=== PATIENT | female | born 1935 | race Caucasian/White ===

== ENCOUNTER 2017-06-15 22:32 | Emergency (ER) | payer MEDICARE, MEDICAID ==
[~2017-06-15] VITALS: Ht 165.1 cm; Wt 60.8 kg
--- OUTSIDE RECORDS SUMMARY | 2017-06-16 01:02 | XMS REPORT | Clinical Summary ---
Author Author Admin, QIE Organization [facility] Address Unknown Phone Unavailable Allergies, Adverse Reactions, Alerts Allergy Name Reaction Description Start Date Severity Status Provider EGG/PRO rash Critical Active Meenakshi Lucke EGGS rash Critical No Longer Active Denilson Saenz MD PENICILLIN rash Critical Active Denilson Saenz MD Conditions or Problems Problem Name Problem Code Onset Date Status Entry Date Provider Comment Standard Description Annotate Diabetes, Type 2 250.00 Active Denilson Saenz MD Diabetes mellitus without mention of complication, type II or unspecified type, not stated as uncontrolled Hypertension 401.9 Active Denilson Saenz MD Unspecified essential hypertension Hyperlipidemia 272.4 Active Denilson Saenz MD Other and unspecified hyperlipidemia Low back pain, chronic 724.2 Active Denilson Saenz MD [facility] MAINTENANCE EXAM V70.0 Active Denilson Saenz MD Routine general medical examination at a health care facility Venous insufficiency, chronic 459.81 Active Denilson Saenz MD Venous (peripheral) insufficiency, unspecified Myocardial infarction 410.90 Active Denilson Saenz MD Acute myocardial infarction, unspecified site, episode of care unspecified Seborrheic keratosis 702.19 Active Denilson Saenz MD Other seborrheic keratosis Encounter for surgical aftercare following surgery on the digestive system V58.75 Active Justus Pfeiffer MD Aftercare following surgery of the teeth,oral cavity and digestive system, NEC Medication List Medication Instructions Start Date Stop Date Generic Name NDC Status Provider Patient Instruction METOCLOPRAMIDE HCL 10 MG ORAL TABS 1 tab daily METOCLOPRAMIDE HCL 83120383025 Active Justus Pfeiffer MD Active NIFEDIPINE 10 MG ORAL CAPS 1 tab NIFEDIPINE 11637414512 Active Justus Pfeiffer MD Active MINIPRESS 1 MG CAPS 1 at hs PRAZOSIN HCL 47582774560 No Longer Active Justus Pfeiffer MD Active ADVIL 200 MG TABS 2tid IBUPROFEN 90751502676 No Longer Active Justus Pfeiffer MD Active BYSTOLIC 20 MG TABS 1bid NEBIVOLOL HCL 46557541659 No Longer Active Justus Pfeiffer MD Active STEP N REST WALKER MISC Low back pain, Diabetes MISC. DEVICES 12004229511 Active Denilson Saenz MD Active DIABETIC SHOES Wear daily DIABETIC SHOES Active Denilson Saenz MD Active FUROSEMIDE 20 MG TABS 1 1/2 qd FUROSEMIDE 37323738844 Active Denilson Saenz MD Active CLONIDINE HCL 0.2 MG TABS 1bid CLONIDINE HCL 93730706219 Active Denilson Saenz MD Active LISINOPRIL 40 MG TABS 1qd LISINOPRIL 42867055021 Active Denilson Saenz MD Active BYSTOLIC 20 MG TABS 1bid BYSTOLIC 20 MG TABS NEBIVOLOL HCL Inactive ADVIL 200 MG TABS 2tid ADVIL 200 MG TABS 120637 IBUPROFEN Inactive MINIPRESS 1 MG CAPS 1 at hs MINIPRESS 1 MG CAPS 172598 PRAZOSIN HCL Inactive Vital Signs Date Name Value Unit Range Description blood pressure, diastolic - 8462-4 70 mm[Hg] BP padilla blood pressure, systolic - 8480-6 140 mm[Hg] BP sys height E&M - 8302-2 60 [in_us] Bdy height pulse rate E&M - 8867-4 70 /min Heart rate temperature E&M 70 [degF] Body temperature weight E&M - 3141-9 139.5 [lb_av] Weight Measured Encounters Code Encounter Date Provider Facility CPT-60208 Level 3 Est. Patient 12:15:31 CDT Denilson Saenz MD [facility] CPT-48454 Level 4 New Patient 12:13:14 CRANE CHASER eDnilson Saenz MD [facility] Procedures Code Procedure Name Date Entry Date Standard Description CPT-86577 Postop F/U Visit 14:23:41 CDT
--- OUTSIDE RECORDS SUMMARY | 2017-06-16 01:02 | XMS REPORT | Clinical Summary ---
Author Author Admin, QIE Organization [facility] Address Unknown Phone Unavailable Allergies, Adverse Reactions, [...] pain, chronic 724.2 Active Denilson Saenz MD [facility] MAINTENANCE EXAM V70.0 Active Denilson Saenz [...] ORAL TABS 1 tab daily METOCLOPRAMIDE HCL 44437737675 Active Justus Pfeiffer MD Active NIFEDIPINE 10 MG ORAL CAPS 1 tab NIFEDIPINE 64174472466 Active Justus Pfeiffer MD Active MINIPRESS 1 MG CAPS 1 at hs PRAZOSIN HCL 84908119048 No Longer Active Justus Pfeiffer MD Active ADVIL 200 MG TABS 2tid IBUPROFEN 34905390200 No Longer Active Justus Pfeiffer MD Active BYSTOLIC 20 MG TABS 1bid NEBIVOLOL HCL 56975292402 No Longer Active Justus Pfeiffer MD Active STEP N REST WALKER [facility] Low back pain, Diabetes MISC. DEVICES 97138630637 Active Denilson Saenz MD Active DIABETIC SHOES Wear daily DIABETIC SHOES Active Denilson Saenz MD Active FUROSEMIDE 20 MG TABS 1 1/2 qd FUROSEMIDE 04085623627 Active Denilson Saenz MD Active CLONIDINE HCL 0.2 MG TABS 1bid CLONIDINE HCL 99585874838 Active Denilson Saenz MD Active LISINOPRIL 40 MG TABS 1qd LISINOPRIL 01415003449 Active Denilson Saenz MD Active BYSTOLIC 20 MG TABS 1bid BYSTOLIC 20 MG TABS NEBIVOLOL HCL Inactive ADVIL 200 MG TABS 2tid ADVIL 200 MG TABS 741543 IBUPROFEN Inactive MINIPRESS 1 MG CAPS 1 at hs MINIPRESS 1 MG CAPS 697453 PRAZOSIN HCL Inactive Vital Signs Date Name Value Unit Range Description blood pressure, diastolic 70 mm[Hg] BP padilla blood pressure, systolic 140 mm[Hg] BP sys height E&M 60 [in_us] Bdy height pulse rate E&M 70 /min Heart rate temperature E&M 70 [degF] Body temperature weight E&M 139.5 [lb_av] Weight Measured Encounters Code Encounter Date Provider Facility CPT-31024 Level 3 Est. Patient 12:15:31 CDT Denilson Saenz MD [facility] CPT-88534 Level 4 New Patient 12:13:14 SENIOR PRICING ANALYST Denilson Saenz MD [facility] Procedures Code Procedure Name Date Entry Date Standard Description CPT-81159 Postop F/U Visit 14:23:41 CDT
--- OUTSIDE RECORDS SUMMARY | 2017-06-16 01:03 | XMS REPORT ---
Author Author [facility] Medical Staff Organization [employer] [facility] Address [address], [place] [address] Phone [phone] Care Team Providers Care House Wrecker Name Role Phone DENISE BEARD DO PP [phone] Summary purpose TRANSITION OF CARE AUTO GENERATION Chief Complaint and Reason for Visit No authorized Reason for Visit (Admitting Diagnosis) is available for this visit. Problem list No authorized problems tracked for continuity of care are available for this visit. Encounters No authorized problems tracked for encounter diagnoses are available for this visit. Medications No medications recorded for this patient visit Allergies, adverse reactions, alerts Allergen Category Ingredient Status Reaction Severity Onset Penicillins Drug Allergy Penicillins Confirmed or Verified Sulfa (Sulfonamide Antibiotics) Drug Allergy Sulfa (Sulfonamide Antibiotics) Confirmed or Verified egg Food Allergy EGG Confirmed or Verified egg Drug Allergy egg Confirmed or Verified Immunizations No immunizations recorded for this patient visit Relevant diagnostic tests and/or laboratory data RESULTS Routine Urinalysis [id number]:50:00 Result Normal Range Units Color YELLOW Clarity Clear Specific [place] 1.015 1.003-1.035 pH 5.5 4.5-8.0 Glucose NEGATIVE Bilirubin NEGATIVE Ketones NEGATIVE Protein NEGATIVE Urobilinogen 0.2 0-0.2 E.U./dL Nitrites NEGATIVE Blood NEGATIVE Leukocytes NEGATIVE WBCs No WBC's Seen RBCs 0-5 Squamous Epithelial Few Chemistry [id number]:50:00 Result Normal Range Units Sodium 136 134-145 mEq/l Potassium 4.2 3.5-5.1 mEq/l Chloride 100 98-107 mEq/l CO2 H 28.1 22-28 mEq/l Glucose H 157 70-105 mg/dl BUN H 35 7-18 mg/dl Creatinine H 1.48 0.6-1.0 mg/dl Calcium 9.6 8.4-10.2 mg/dl TP - Total Protein 7.4 6.0-8.3 g/dl Albumin 4.0 3.5-5 g/dl Bilirubin - Total 0.3 0.1-1.0 mg/dl AST 37 10-42 IU/L ALT 35 12-65 IU/L ALP 59 25-72 IU/L Magnesium 2.0 1.7-2.8 mg/dl Osmolality 283.2 280-300 mOsm/L Albumin/Globulin Ratio 1.2 0-8 Anion GAP L 7.9 8-16 BUN/Creatinine Ratio H 23.6 10-20 Estimated GFR L 34 >=60 mL/min/1.7 Hematology [id number]:50:00 Result Normal Range Units WBC 6.1 4.8-10.8 103/uL RBC L 3.4 4.2-5.4 106/uL HGB L 10.5 12.0-16.0 g/dl HCT L 31.8 36.9-47.0 % MCV 92.4 81-99 FL MCH 30.5 27-31 pg MCHC 33.0 33-37 g/dl RDW 12.7 11.5-15.5 % PLT 160 130-400 103/uL MPV 10.1 7.3-10.4 FL Neutro % H 74.2 40-70 % Lymph % L 16.4 20-40 % [place] % 7.5 0-10.0 % Eos % 0.8 0-7.0 % Baso % 0.8 0-2 % Neutro # 4.5 1.5-7.5 103/uL Lymph # 1.0 0.9-4.0 103/uL [place] # 0.5 0-0.8 103/uL Eos # 0.1 0-0.6 103/uL Baso # 0.1 0-0.1 103/uL Body Fluid [id number]:50:00 Result Normal Range Units pH 5.5 4.5-8.0 Cardiac 12-49-235814:50:00 Result Normal Range Units Troponin I < 0.02 0.0-0.4 ng/ml Patient samples may contain heterophilic antibodies that could react in immunoassays to give falsely elevated or depressed results. This Dimension assay has been designed to minimize interference from heterophilic antibodies. Nevertheless, complete elimination of this interference from all patient specimens cannot be guaranteed. A test result that is inconsistent with the clinical picture and patient history should be interpreted with caution. Thyroid Testing :50:00 Result Normal Range Units TSH 1.69 0.36-3.74 uIU/mL Radiology Results :50:00 Result Normal Range Units MPV 10.1 7.3-10.4 FL History of procedures No procedures recorded for this patient visit. Functional status Functional Status Finding Observation Time Abdomen Appearance round :24 Abdomen soft :24 Singh no :24 Urination normal :24 Quality sym/unlabored :24 Cough absent :24 Secretions no :24 Airway natural :24 Chest Tube no :24 Oxygen no :00 Temp >100.4 no :24 Temp <96.8 no :24 Chills with rigors no :24 HR > 90bpm no :24 Respirations > 20 no :24 Systolic <90 no :24 headache stiff neck no :24 IV Site Location Left AC :00 IV Type peripheral :00 IV Site Information discontinued :00 IV Site Start Attmpt 1 times 97-91-205137:20 IV Site Luis Miguel 20 55-97-474033:20 IV Site Appearance WNL 83-77-996300:20 IV Site Color clear 72-71-204168:20 IV Site Patent yes [id number]:20 Dressing Type occlusive 74-04-635490:20 Nursing Note After a med size BM soft, formed, pt is now ready for home. Pt's saline lock removed with catheter intact and dressing to site. Pt was stable to go out to her daughter's car via w/c. Both pt and her daughter verbalized their understanding of discharge instructions. :00 Vital signs Type Value Date Respiration Rate 20breaths per minute :00 Pulse 51beats per minute :00 Oxygen Saturation 100% : BP Systolic 158mmHg :00 BP Diastolic 71mmHg :00 Temperature 97.6F : Social history Type Value Smoking Status NEVER SMOKER Treatment Plan No treatment plan text is available for this visit. Hospital discharge instructions Dismissal Condition good Disposition on DC home DC Inst/Educ Give yes Med/Side Effects Rev yes Flu Vac allergy
--- OUTSIDE RECORDS SUMMARY | 2017-06-16 01:03 | XMS REPORT | Clinical Summary ---
Author Author Admin, QIE Organization [facility] Address Unknown Phone Unavailable Allergies, Adverse Reactions, [...] pain, chronic 724.2 Active Denilson Saenz MD [facility] MAINTENANCE EXAM V70.0 Active Denilson Saenz MD [...] ORAL TABS 1 tab daily METOCLOPRAMIDE HCL 77661052114 Active Justus Pfeiffer MD Active NIFEDIPINE 10 MG ORAL CAPS 1 tab NIFEDIPINE 14008237054 Active Justus Pfeiffer MD Active MINIPRESS 1 MG CAPS 1 at hs PRAZOSIN HCL 34750603739 No Longer Active Justus Pfeiffer MD Active ADVIL 200 MG TABS 2tid IBUPROFEN 04536220105 No Longer Active Justus Pfeiffer MD Active BYSTOLIC 20 MG TABS 1bid NEBIVOLOL HCL 43277903575 No Longer Active Justus Pfeiffer MD Active STEP N REST WALKER [facility] Low back pain, Diabetes MISC. DEVICES 08010019018 Active Denilson Saenz MD Active DIABETIC SHOES Wear daily DIABETIC SHOES Active Denilson Saenz MD Active FUROSEMIDE 20 MG TABS 1 1/2 qd FUROSEMIDE 11439056210 Active Denilson Saenz MD Active CLONIDINE HCL 0.2 MG TABS 1bid CLONIDINE HCL 22831588690 Active Denilson Saenz MD Active LISINOPRIL 40 MG TABS 1qd LISINOPRIL 92010045757 Active Denilson Saenz MD Active BYSTOLIC 20 MG TABS 1bid BYSTOLIC 20 MG TABS NEBIVOLOL HCL Inactive ADVIL 200 MG TABS 2tid ADVIL 200 MG TABS 132237 IBUPROFEN Inactive MINIPRESS 1 MG CAPS 1 at hs MINIPRESS 1 MG CAPS 503508 PRAZOSIN HCL Inactive Vital Signs Date Name Value Unit Range Description blood pressure, diastolic 70 mm[Hg] BP padilla blood pressure, systolic 140 mm[Hg] BP sys height E&M 60 [in_us] Bdy height pulse rate E&M 70 /min Heart rate temperature E&M 70 [degF] Body temperature weight E&M 139.5 [lb_av] Weight Measured Encounters Code Encounter Date Provider Facility CPT-65556 Level 3 Est. Patient 12:15:31 CDT Denilson Saenz MD [facility] CPT-35780 Level 4 New Patient 12:13:14 DELIVERY COORDINATOR Denilson Saenz MD [facility] Procedures Code Procedure Name Date Entry Date Standard Description CPT-95159 Postop F/U Visit 14:23:41 CDT
--- OUTSIDE RECORDS SUMMARY | 2017-06-16 01:03 | XMS REPORT ---
Author Author [facility] Medical Staff Organization [employer] [facility] Address [address], [place] [address] Phone [phone] Care Team Providers Care Hiv Counselor Name Role Phone DENISE BEARD DO PP [phone] Summary purpose TRANSITION OF CARE AUTO GENERATION [...] tests and/or laboratory data RESULTS Routine Urinalysis [id number]:50:00 Result Normal Range Units Color YELLOW Clarity Clear Specific [place] 1.015 1.003-1.035 pH 5.5 4.5-8.0 Glucose NEGATIVE Bilirubin NEGATIVE Ketones NEGATIVE Protein NEGATIVE Urobilinogen 0.2 0-0.2 E.U./dL Nitrites NEGATIVE Blood NEGATIVE Leukocytes NEGATIVE WBCs No WBC's Seen RBCs 0-5 Squamous Epithelial Few Chemistry [id number]:50:00 Result Normal Range Units Sodium 136 134-145 [...] Estimated GFR L 34 >=60 mL/min/1.7 Hematology 11-49-434088:50:00 Result Normal Range Units WBC 6.1 4.8-10.8 103/uL RBC L 3.4 4.2-5.4 106/uL HGB L 10.5 12.0-16.0 g/dl HCT L 31.8 36.9-47.0 % MCV 92.4 81-99 FL MCH 30.5 27-31 pg MCHC 33.0 33-37 g/dl RDW 12.7 11.5-15.5 % PLT 160 130-400 103/uL MPV 10.1 7.3-10.4 FL Neutro % H 74.2 40-70 % Lymph % L 16.4 20-40 % [place] % 7.5 0-10.0 % Eos % 0.8 0-7.0 % Baso % 0.8 0-2 % Neutro # 4.5 1.5-7.5 103/uL Lymph # 1.0 0.9-4.0 103/uL [place] # 0.5 0-0.8 103/uL Eos # 0.1 0-0.6 103/uL Baso # 0.1 0-0.1 103/uL Body Fluid [id number]:50:00 Result Normal Range Units pH 5.5 4.5-8.0 Cardiac 90-09-104529:50:00 Result Normal Range Units Troponin I < [...] should be interpreted with caution. Thyroid Testing [id number]:50:00 Result Normal Range Units TSH 1.69 0.36-3.74 uIU/mL Radiology Results [id number]:50:00 Result Normal Range Units MPV 10.1 7.3-10.4 FL History of procedures Procedure Code Code Type Description Date Performed Performing Physician 51324 CPT-4 ROUTINE VENIPUNCTURE 03-24-2016 SCOTT LONG 97059 CPT-4 COMPREHEN METABOLIC PANEL 03-24-2016 SCOTT LONG 04942 CPT-4 URINALYSIS, AUTO W/SCOPE 03-24-2016 SCOTT LONG 97152 CPT-4 ASSAY OF MAGNESIUM 03-24-2016 SCOTT LONG 56755 CPT-4 ASSAY THYROID STIM HORMONE 03-24-2016 SCOTT LONG 59192 CPT-4 ASSAY OF TROPONIN, QUANT 03-24-2016 SCOTT LONG 51177 CPT-4 COMPLETE CBC W/AUTO DIFF WBC 03-24-2016 SCOTT LONG 70101 CPT-4 ELECTROCARDIOGRAM, TRACING 03-24-2016 SCOTT LONG J7030 CPT-4 NORMAL SALINE SOLUTION INFUS 03-24-2016 SCOTT LONG 87964 CPT-4 EMERGENCY DEPT VISIT 03-24-2016 SCOTT LONG 54049 CPT-4 EMERGENCY DEPT VISIT 03-24-2016 SCOTT LONG 60180 CPT-4 HYDRATION IV INFUSION, INIT 03-24-2016 SCOTT LONG Functional status Functional Status Finding Observation Time Abdomen Appearance round 01-37-847197:24 Abdomen soft 24-29-121895:24 Singh no 68-00-349311:24 Urination normal 75-01-600906:24 Quality sym/unlabored 64-90-473381:24 Cough absent 96-01-143736:24 Secretions no 81-99-987734:24 Airway natural 58-35-371537:24 Chest Tube no 08-89-931262:24 Oxygen no 38-56-863221:00 Temp >100.4 no 19-81-676808:24 Temp <96.8 no 33-77-828031:24 Chills with rigors no 34-73-760547:24 HR > 90bpm no 53-13-505593:24 Respirations > 20 no 87-79-662548:24 Systolic <90 no 91-23-198817:24 headache stiff neck no 52-40-832678:24 IV Site Location Left AC 11-99-593730:00 IV Type peripheral :00 IV Site Information discontinued :00 IV Site Start Attmpt 1 times 36-88-239910:20 IV Site Luis Miguel 20 45-74-270860:20 IV Site Appearance WNL 57-69-428076:20 IV Site Color clear 91-83-620719:20 IV Site Patent yes [id number]:20 Dressing Type occlusive 76-48-836343:20 Nursing Note After a med size BM [...] 51beats per minute :00 Oxygen Saturation 100% :00 BP Systolic 158mmHg :00 BP Diastolic 71mmHg 53-59-714590:00 Temperature 97.6F :00 Social history Type Value Smoking Status NEVER SMOKER Treatment Plan No treatment plan text is available for this visit. Hospital discharge instructions Dismissal Condition good Disposition on DC home DC Inst/Educ Give yes Med/Side Effects Rev yes Flu Vac allergy
[2017-06-16] MEDS ORDERED: fentaNYL INJECTION 100 MCG/2 ML AMP IVP STA (01:06)
[2017-06-16 01:29] LABS: BASOPHILS % (AUTO) 1 % (0-10); EOSINOPHILS # (AUTO) 0.1 10^3/uL (0.0-0.3); EOSINOPHILS % (AUTO) 3 % (0-10); LYMPHOCYTES # (AUTO) 1.5 X 10^3 (1.0-4.0); LYMPHOCYTES % (AUTO) 33 % (12-44); MEAN CORPUSCULAR HEMOGLOBIN 31 PG (25-34); MEAN CORPUSCULAR HGB CONC 33 G/DL (32-36); MEAN CORPUSCULAR VOLUME 96 FL (80-99); MEAN PLATELET VOLUME 9.8 FL (7.4-10.4); MONOCYTES # (AUTO) 0.5 X 10^3 (0.0-1.0); MONOCYTES % (AUTO) 12 % (0-12); NEUTROPHILS # (AUTO) 2.3 X 10^3 (1.8-7.8); NEUTROPHILS % (AUTO) 52 % (42-75); PLATELET COUNT 163 10^3/uL (130-400); RED BLOOD COUNT 3.63 10^6/uL (4.35-5.85); RED CELL DISTRIBUTION WIDTH 12.8 % (10.0-14.5); WHITE BLOOD COUNT 4.4 10^3/uL (4.3-11.0)
[2017-06-16 01:54] LABS: ALBUMIN 3.9 GM/DL (3.2-4.5); BILIRUBIN,TOTAL 0.3 MG/DL (0.1-1.0); CALCIUM 10.6 MG/DL (8.5-10.1); CREATININE SERUM 1.47 MG/DL (0.60-1.30); POTASSIUM 4.3 MMOL/L (3.6-5.0); TOTAL PROTEIN 7.1 GM/DL (6.4-8.2)
[2017-06-16] MEDS ORDERED: HYDR-3812 PO (02:04)
[2017-06-16] MEDS ORDERED: PRD20T PO (02:04)
--- NOTE | 2017-06-16 02:05 | ED Back Pain ---
General Chief Complaint: back pain Stated Complaint: back pain Nursing Triage Note: PT BROUGHT TO ROOM BY WHEELCHAIR. PT COMPLAINS OF SEVERE RIGHT LOWER BACK, THIGH, AND HIP PAIN STARTING LAST TUESDAY AND HAS GOTTEN WORSE SINCE THEN. PT STATES SHE USUALLY WALKS WITH A BUGGY AT HOME. Source of Information: Patient, Family (daughter and grandaughter) History of Present Illness Time Seen by Provider: 23:45 Initial Comments 81-year-old female patient presents to the emergency department with complaints of severe low back pain radiating down the right hip to the level of the knee. 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 Reports last pain progressively got worse. Denies any known recent injury. Denies bowel incontinence, bladder incontinence, abdominal pain, numbness, weakness, tingling. Patient is scheduled to see Dr. Roberson on Tuesday to establish care. Location: Lumbar Spine, Paraspinous Muscles Timing/Duration: Getting Worse, Other (chronic pain worse starting yesterday) Pain/Injury Location: Back Radiation: Other (radiates down the right buttock to the level that he) Method of Injury: Other (denies known recent injury) Modifying Factors: Improves With Immobilization, Worse With Movement Associated Symptoms: muscle spasms, No fever, No weakness, No numbness in legs/ feet, No tingling in legs/feet, No sensory/motor loss, lower back pain, No loss of bladder control, No loss of bowel control Allergies and Home Medications Allergies Coded Allergies: Penicillins (Verified Allergy, Unknown, 06/16/17) egg (Verified Allergy, Unknown, 06/16/17) Home Medications Acetaminophen 500 Mg Tablet, 500 MG PO, (Reported) Calcium Carb & Citrate/Vit D3 1 Each Tablet.er, 1 EACH PO, (Reported) Clonidine HCl 0.1 Mg Tablet, 0.1 MG PO BID, (Reported) Famotidine 20 Mg Tablet, 20 MG PO BID, (Reported) Furosemide 20 Mg Tablet, 20 MG PO, (Reported) Lisinopril 40 Mg Tablet, 40 MG PO DAILY, (Reported) Magnesium 250 Mg Tablet, 250 MG PO, (Reported) Metoprolol Tartrate 50 Mg Tablet, 50 MG PO BID, (Reported) Nifedipine 20 Mg Capsule, 20 MG PO, (Reported) Rosuvastatin Calcium 10 Mg Tablet, 10 MG PO, (Reported) Constitutional: No chills, No diaphoresis, No dizziness, No fever, No malaise, No weakness Respiratory: no symptoms reported Cardiovascular: no symptoms reported Gastrointestinal: No abdominal pain, No constipation, No diarrhea, No nausea, No vomiting Genitourinary: No decreased output, No dysuria, No frequency, No hematuria Musculoskeletal: see HPI, back pain, joint pain, muscle pain, muscle stiffness , No neck pain Skin: no symptoms reported Psychiatric/Neurological: Denies Headache, Denies Numbness, Denies Paresthesia , Denies Tingling, Denies Weakness All Other Systems Reviewed Negative Unless Noted: Yes (Negative excepted noted.) Past [id number]-[id number]-[id number] Hx Patient Social History Recent Foreign Travel: No Contact w/Someone Who Travel: No Surgeries History of Surgeries: Yes Surgeries: CABG, Gallbladder Respiratory History of Respiratory Disorde: No Cardiovascular History of Cardiac Disorders: Yes Cardiac Disorders: Coronary Artery Disease, High Cholesterol, Hypertension Neurological History of Neurological Disord: No Genitourinary History of Genitourinary Disor: No Gastrointestinal History of Gastrointestinal Di: No Musculoskeletal History of Musculoskeletal Dis: Yes Musculoskeletal Disorders: Back Injury, Chronic Back Pain Endocrine History of Endocrine Disorders: No Reviewed Nursing Assessment Reviewed/Agree w Nursing PMH: Yes Family Medical History Significant Family History: No Pertinent Family Hx Physical Exam Vital Signs Vital Sign - Last 12Hours 06/15/17 23:39 Temp 98.1 Pulse 57 Resp 20 B/P (MAP) 158/86 Pulse Ox 99 O2 Delivery Room Air Capillary Refill : General Appearance: No Apparent Distress, WD/WN HEENT: PERRL/EOMI, Pharynx Normal Neck: Full Range of Motion, Normal Inspection, Non Tender, Supple Cardiovascular: Regular Rate, Rhythm, No Murmur, Normal Peripheral Pulses Respiratory: Lungs Clear, Normal Breath Sounds, No Accessory Muscle Use, No Respiratory Distress Peripheral Pulses: 2+ Dorsalis Pedis (R), 2+ Left Dors-Pedis (L), 2+ Radial Pulses (R), 2+ Radial Pulses (L) Gastrointestinal: Normal Bowel Sounds, No Organomegaly, Non Tender, Soft Back: Decreased Range of Motion, Vertebral Tenderness (lumbar vertebral tenderness without step-off, ecchymosis, or swelling.), Other (moderate to severe kyphosis) Extremity: Normal Capillary Refill, Normal Inspection, Pedal Edema (one plus pedal edema bilaterally), Other (soft tissue tenderness noted of the right buttock and right posterior lateral thigh.) Neurologic/Psychiatric: Alert, Oriented x3, No Motor/Sensory Deficits, Normal Mood/Affect Skin: Normal Color, Warm/Dry Progress/Results/Core Measures Results/Orders Lab Results Laboratory Tests Test 06/16/17 01:23 Range/Units White Blood Count 4.4 4.3-11.0 10^3/uL Red Blood Count 3.63 L 4.35-5.85 10^6/uL Hemoglobin 11.4 L 11.5-16.0 G/DL Hematocrit 35 35-52 % Mean Corpuscular Volume 96 80-99 FL Mean Corpuscular Hemoglobin 31 25-34 PG Mean Corpuscular Hemoglobin Concent 33 32-36 G/DL Red Cell Distribution Width 12.8 10.0-14.5 % Platelet Count 163 130-400 10^3/uL Mean Platelet Volume 9.8 7.4-10.4 FL Neutrophils (%) (Auto) 52 42-75 % Lymphocytes (%) (Auto) 33 12-44 % Monocytes (%) (Auto) 12 0-12 % Eosinophils (%) (Auto) 3 0-10 % Basophils (%) (Auto) 1 0-10 % Neutrophils # (Auto) 2.3 1.8-7.8 X 10^3 Lymphocytes # (Auto) 1.5 1.0-4.0 X 10^3 Monocytes # (Auto) 0.5 0.0-1.0 X 10^3 Eosinophils # (Auto) 0.1 0.0-0.3 10^3/uL Basophils # (Auto) 0.0 0.0-0.1 10^3/uL Sodium Level 140 135-145 MMOL/L Potassium Level 4.3 3.6-5.0 MMOL/L Chloride Level 105 98-107 MMOL/L Carbon Dioxide Level 26 21-32 MMOL/L Anion Gap 9 5-14 MMOL/L Blood Urea Nitrogen 33 H 7-18 MG/DL Creatinine 1.47 H 0.60-1.30 MG/DL Estimat Glomerular Filtration Rate 34 BUN/Creatinine Ratio 22 Glucose Level 110 H 70-105 MG/DL Calcium Level 10.6 H 8.5-10.1 MG/DL Total Bilirubin 0.3 0.1-1.0 MG/DL Aspartate Amino Transf (AST/SGOT) 25 5-34 U/L Alanine Aminotransferase (ALT/SGPT) 22 0-55 U/L Alkaline Phosphatase 92 40-136 U/L Total Protein 7.1 6.4-8.2 GM/DL Albumin 3.9 3.2-4.5 GM/DL My Orders Orders - WINNIE BETANCUR Rx-Hydrocodone/Apap 5-325 Mg (Rx-Vicodin (06/16/17 02:15) Fentanyl Injection (Sublimaze Injection (06/16/17 03:00) Iv Push Professional Bass Fisher Ed (06/15/17 ) Vital Signs/I&O Vital Sign - Last 12Hours 06/15/17 06/16/17 23:39 03:02 Temp 98.1 97.1 Pulse 57 56 Resp 20 20 B/P (MAP) 158/86 Pulse Ox 99 100 O2 Delivery Room Air Room Air Departure Communication (Admissions) Progress Notes Patient seen and evaluated. Patient was given fentanyl 25 g with improvement in pain. His prior to dismissal patient was noted to have increased pain and was given 12.5 g of Tylenol as well as a take-home pack of hydrocodone. Patient instructed to use 1/2-1 tablet by mouth every 4-6 hours as needed for pain. Patient's follow-up with Dr. Roberson Tuesday as previously scheduled. All return precautions were discussed with the patient and her daughter as described in the discharge instructions this report. Both voice understanding and agree with the treatment plan. Impression Impression: Primary Impression: Lumbar radiculopathy, chronic Disposition: 01 HOME, SELF-CARE Condition: Improved Departure-Patient Inst. Decision time for Depature: 02:02 Referrals: DIPESH COBOS APRN, GRETCHEN L PA TAYLOR, JOHN D MD Patient Instructions: Radiculopathy (DC) Add. Discharge Instructions: Medications as instructed. Heating pad or pack as needed for pain. Avoid lifting, pushing, pulling, twisting, bending, climbing 7 days. Increase activity slowly as tolerated. Avoid sitting on hard surfaces. Follow-up with Dr. Roberson Tuesday as previously scheduled. Return to the emergency department for worsened pain, numbness, weakness, bowel incontinence, bladder incontinence , numbness of the genitals, or any other concerns. Copy Copies To 1: MARY ROBERSON MD, GRETCHEN L PA Jun 16, 2017 02:05
[2017-06-16] MEDS ORDERED: RX-HYDROCODONE/APAP 5/325 MG #4 TAB PK PO PRN (02:15)
[2017-06-16] MEDS ORDERED: fentaNYL INJECTION 100 MCG/2 ML AMP IVP PRN (03:00)
[2017-06-16 03:02] VITALS: BP 164/72
[2017-06-18] MEDS ORDERED: CLON0.1T PO (16:34)
[2017-06-18] MEDS ORDERED: FAMO20TA3 PO (16:34)
[2017-06-18] MEDS ORDERED: METO50TA2 PO (16:34)
[2017-06-18] MEDS ORDERED: MAGN250T2 PO (16:34)
[2017-06-18] MEDS ORDERED: ROSU10TA PO (16:34)
[2017-06-18] MEDS ORDERED: LISI40TA PO (16:34)
[2017-06-18] MEDS ORDERED: NIFE20CA PO (16:34)
[2017-06-18] MEDS ORDERED: FURO20TA4 PO (16:34)
[2017-06-18] MEDS ORDERED: CALC-722 PO (16:34)
[2017-06-18] MEDS ORDERED: ACET-2267 PO (16:34)
== END 2017-06-16 03:02 | disposition home or self-care (01) ==
LOC: ER 22:32
DX: M54.16 Radiculopathy, lumbar region (principal); I25.10 Atherosclerotic heart disease of native coronary artery without angina pectoris; E78.00 Pure hypercholesterolemia, unspecified; I10 Essential (primary) hypertension; Z95.5 Presence of coronary angioplasty implant and graft; Z87.828 Personal history of other (healed) physical injury and trauma
CPT/HCPCS: 36415; 80053; 85025; 96374; 96376

== ENCOUNTER → 2017-09-07 | Outpatient (CLI) | payer MEDICARE, MEDICAID ==
[~2017-09-07] MED LIST: ACET-2267 PO; CALC-722 PO; CLON0.1T PO; FAMO20TA3 PO; FURO20TA4 PO; HYDR-3812 PO; LISI40TA PO; MAGN250T2 PO; METO50TA15 PO; NIFE20CA PO; PRD20T PO; ROSU10TA PO
== END ==
LOC: CARD 09:48
PROVIDERS: ATTEND Internal Medicine Cardiovascular Disease
DX: I25.10 Atherosclerotic heart disease of native coronary artery without angina pectoris (principal); I10 Essential (primary) hypertension; E78.5 Hyperlipidemia, unspecified
CPT/HCPCS: 93306

== ENCOUNTER 2019-05-12 16:09 | Emergency (ER) | payer MEDICARE, MEDICAID | END 2019-05-12 19:01 | disposition home or self-care (01) | LOC: ER 16:09 ==

== ENCOUNTER 2019-05-17 16:26 | Inpatient (IN) | payer MEDICARE | END 2019-05-24 14:00 | disposition other institution (70) | LOC: ER 16:26 → 4TH 20:05 | DX: N17.9 Acute kidney failure, unspecified (principal); I10 Essential (primary) hypertension; E87.5 Hyperkalemia; R11.2 Nausea with vomiting, unspecified; R09.89 Other specified symptoms and signs involving the circulatory and respiratory systems; M40.209 Unspecified kyphosis, site unspecified; I25.10 Atherosclerotic heart disease of native coronary artery without angina pectoris; E78.00 Pure hypercholesterolemia, unspecified; M54.9 Dorsalgia, unspecified; R54 Age-related physical debility; F69 Unspecified disorder of adult personality and behavior; L98.9 Disorder of the skin and subcutaneous tissue, unspecified; Z95.1 Presence of aortocoronary bypass graft; Z91.19 Patient's noncompliance with other medical treatment and regimen ==